=== PATIENT | female | born 1935 | race Two or more races ===

== ENCOUNTER 2017-07-29 10:50 | Outpatient (CLI) | payer OTHER ==
[~2017-07-29 10:50] MED LIST: ALDACTONE25 MG; COZAAR25 MG; LASIX20 MG; LIPITOR20 MG; NORVASC5 MG; XANAX0.25 MG PO; XARELTO20 MG
== END 2017-07-29 11:02 | disposition home or self-care (01) ==
LOC: LAB 10:50
DX: N39.0 Urinary tract infection, site not specified (principal); R82.79 Other abnormal findings on microbiological examination of urine

== ENCOUNTER 2017-07-29 10:54 | Outpatient (CLI) | payer OTHER | END 2017-07-29 11:02 | disposition home or self-care (01) | LOC: RAD 10:54 | DX: J44.1 Chronic obstructive pulmonary disease with (acute) exacerbation (principal) ==

== ENCOUNTER 2017-11-03 10:26 | Emergency (ER) | payer OTHER ==
[~2017-11-03] VITALS: Ht 162.6 cm; Wt 99.8 kg
[2017-11-03] MEDS ORDERED: COREG CR10 MG (10:59)
[2017-11-03] MEDS ORDERED: DIOVAN40 MG (11:00)
[2017-11-03] MEDS ORDERED: XARELTO15 MG (11:01)
[2017-11-03] MEDS ORDERED: PREDNISONE10 MG (11:01)
[2017-11-03] MEDS ORDERED: LASIX40 MG (11:01)
[2017-11-03] MEDS ORDERED: SYMBICORT 16010.2 GM (11:02)
[2017-11-03] MEDS ORDERED: BUDESONIDE0.5 MG/2 M (11:02)
[2017-11-03] MEDS ORDERED: XOPENEX0.63 MG/3 (11:02)
== END 2017-11-03 14:45 | disposition home or self-care (01) ==
LOC: ER 10:26
DX: R00.2 Palpitations (principal)

== ENCOUNTER 2017-11-29 12:53 | Inpatient (IN) | payer OTHER ==
[~2017-11-29] VITALS: Ht 162.6 cm; Wt 97.1 kg
[~2017-11-29 12:53] MED LIST changes: +BUDESONIDE0.5 MG/2 M; +COREG CR10 MG; +DIOVAN40 MG; +LASIX40 MG; +PREDNISONE10 MG; +SYMBICORT 16010.2 GM; +XARELTO15 MG; +XOPENEX0.63 MG/3
== END 2017-12-07 14:37 | disposition home or self-care (01) | DRG 308 ==
LOC: ER 12:53 → ICU-2 20:27 → SURH 20:27 → MEDI 11-30 13:17 → SURH 12-07 14:37
PROC: 3E0F7GC Introduction of Other Therapeutic Substance into Respiratory Tract, Via Natural or Artificial Opening (ICD-10-PCS; principal; 2017-11-30)
PROC: 4A033R1 Measurement of Arterial Saturation, Peripheral, Percutaneous Approach (ICD-10-PCS; 2017-11-30)
PROC: B246ZZZ Ultrasonography of Right and Left Heart (ICD-10-PCS; 2017-11-30)
PROC: 4A12X4Z Monitoring of Cardiac Electrical Activity, External Approach (ICD-10-PCS; 2017-11-30)
PROC: BW41ZZZ Ultrasonography of Abdomen and Pelvis (ICD-10-PCS; 2017-12-01)
PROC: BW4GZZZ Ultrasonography of Pelvic Region (ICD-10-PCS; 2017-12-06)
DX: I48.0 Paroxysmal atrial fibrillation (principal); I50.33 Acute on chronic diastolic (congestive) heart failure; I20.0 Unstable angina; J45.31 Mild persistent asthma with (acute) exacerbation; J44.1 Chronic obstructive pulmonary disease with (acute) exacerbation; N39.0 Urinary tract infection, site not specified; N17.8 Other acute kidney failure; D69.59 Other secondary thrombocytopenia; B96.89 Other specified bacterial agents as the cause of diseases classified elsewhere; M81.0 Age-related osteoporosis without current pathological fracture; I11.0 Hypertensive heart disease with heart failure; Z86.73 Personal history of transient ischemic attack (TIA), and cerebral infarction without residual deficits; M54.31 Sciatica, right side

== ENCOUNTER 2018-07-17 12:08 | Emergency (ER) | payer OTHER ==
[~2018-07-17] VITALS: Ht 162.6 cm; Wt 95.3 kg
== END 2018-07-17 21:59 | disposition home or self-care (01) ==
LOC: ER 12:08
DX: J09.X2 Influenza due to identified novel influenza A virus with other respiratory manifestations (principal); J45.901 Unspecified asthma with (acute) exacerbation

== ENCOUNTER 2019-07-11 10:04 | Emergency (ER) | payer OTHER ==
[~2019-07-11] VITALS: Ht 162.6 cm; Wt 127.0 kg
[2019-07-11] MEDS ORDERED: ALDACTONE25 MG (10:56)
[2019-07-11] MEDS ORDERED: CARVEDILOL6.25 MG (10:57)
[2019-07-11] MEDS ORDERED: SINGULAIR10 MG (10:57)
== END 2019-07-11 11:27 | disposition home or self-care (01) ==
LOC: ER 10:04
DX: M17.12 Unilateral primary osteoarthritis, left knee (principal); M19.072 Primary osteoarthritis, left ankle and foot

== ENCOUNTER → 2020-12-11 | Emergency (ER) | payer OTHER ==
[~2020-12-11] VITALS: Ht 162.6 cm; Wt 95.3 kg
[~2020-12-11] MED LIST changes: +CARVEDILOL6.25 MG; +SINGULAIR10 MG
== END | disposition left against medical advice (07) ==
LOC: ER 09:54
DX: S90.31XA Contusion of right foot, initial encounter (principal); X58.XXXA Exposure to other specified factors, initial encounter; Y93.89 Activity, other specified; Y92.89 Other specified places as the place of occurrence of the external cause; Y99.8 Other external cause status

== ENCOUNTER 2021-03-20 09:26 | Emergency (ER) | payer OTHER ==
[~2021-03-20] VITALS: Ht 162.6 cm; Wt 101.6 kg
[2021-03-20] MEDS ORDERED: UTIX PO (16:27)
[2021-03-20] MEDS ORDERED: LEVOFLOXACIN500 MG PO (16:27)
== END 2021-03-20 17:51 | disposition home or self-care (01) ==
LOC: ER 09:26
DX: K57.90 Diverticulosis of intestine, part unspecified, without perforation or abscess without bleeding (principal); N39.0 Urinary tract infection, site not specified; R10.32 Left lower quadrant pain

== ENCOUNTER 2021-12-02 05:09 | Inpatient (IN) | payer OTHER ==
[~2021-12-02] VITALS: Ht 152.4 cm; Wt 98.4 kg
[~2021-12-02 05:09] MED LIST changes: +LEVOFLOXACIN500 MG PO; +UTIX PO
--- NOTE | 2021-12-02 05:47 | NUR ---
PATIENT IS RECIEVED ALERT ORIENTED X3. PATIENT IS SAYING THAT SHE HAS CHEST PAIN AND DIFFICULTY BREATHING SINCE YESTERDAY.
--- NOTE | 2021-12-02 07:00 | NUR ---
SE RECIBE PACIENTE FEMENINA ALERTA Y ORIENTADA X3, EN CAMA #2 CON BARRANDAS ELEVADAS. CONECTADA A MONITOR CARDIACO, OXIMETRIA DE PULSO Y CANULA NASAL A 2 LITROS. AREA DE VENOPUNCION EN BRAZO DERECHO CANALIZADA CON ANGIO #18 EN AMBOS CON S/L Y TRIDIL 50MG/ 250ML D/W 5% BAJANDO 2ML/HR PATENTE TATE DE EDEMA Y ENROJECIMIENTO. TIENE ORR #16 CON ORINA COLOR AMARILLA. PENDIENTE A CONSULTA. SE OBSERVA POR CAMBIOS.
--- NOTE | 2021-12-02 07:04 | NUR ---
SE RECIBE PTE FEMENINA DE 86 YRS ALERTA CONCIENTE Y CON DIFICULTAD AL RESPIRAR. SE ACOMODA EN CAMA EN LA UNIDAD DE ICU-2 SE CONCETA A MONITOR CARDIACO Y OXIMENTRIA SE LE INSERTA FOLIE CATHETE Y SE LE MARY BETH MUESTRAS JEROME PROTOCOLO DE LA UNIDAD. PTE ES EVALUADA POR EL ,RENTA QUIE ORDENA TRATAMEINTO LA CUAL S EJECUTA / SE LE NOTIFICA A MS,LEE DE TERAPIA R ESPIRATORIA PARA LOS ABG'S Y COMINEZO DE TRATMAINETO DE XOPENEX. SE MANTIENE BAJO OBSERVACION.SE LE ADMINISTRA LASIX 40MG IV Y SOLUMENDROL 125 MG IV. SE OBSERVA POR CAMBIOS.
[2021-12-08] MEDS ORDERED: GABAPENTIN100 M2 (16:12)
== END 2021-12-16 16:40 | disposition home or self-care (01) | DRG 280 ==
LOC: ER 05:09 → SURH 13:11 → MEDJ 13:11 → SEC-K 15:42 → SURH 12-03 17:49 → ICU 12-10 14:54 → MEDJ 12-14 11:17
PROVIDERS: ADMIT Internal Medicine; ATTEND Internal Medicine
PROC: B24BZZZ Ultrasonography of Heart with Aorta (ICD-10-PCS; principal; 2021-12-02)
PROC: 4A12X4Z Monitoring of Cardiac Electrical Activity, External Approach (ICD-10-PCS; 2021-12-03)
PROC: BW24ZZZ Computerized Tomography (CT Scan) of Chest and Abdomen (ICD-10-PCS; 2021-12-09)
PROC: 02HV33Z Insertion of Infusion Device into Superior Vena Cava, Percutaneous Approach (ICD-10-PCS; 2021-12-11)
DX: I11.0 Hypertensive heart disease with heart failure (principal); I50.33 Acute on chronic diastolic (congestive) heart failure; I21.4 Non-ST elevation (NSTEMI) myocardial infarction; N39.0 Urinary tract infection, site not specified; J98.11 Atelectasis; R06.02 Shortness of breath; I48.91 Unspecified atrial fibrillation; R09.02 Hypoxemia; E66.01 Morbid (severe) obesity due to excess calories; J44.9 Chronic obstructive pulmonary disease, unspecified; I44.7 Left bundle-branch block, unspecified; B96.0 Mycoplasma pneumoniae [M. pneumoniae] as the cause of diseases classified elsewhere; I25.10 Atherosclerotic heart disease of native coronary artery without angina pectoris; Z20.822 Contact with and (suspected) exposure to COVID-19

== ENCOUNTER 2024-04-13 08:08 | Outpatient (CLI) | payer OTHER ==
[~2024-04-13 08:08] MED LIST changes: +GABAPENTIN100 M2
[2024-04-13 08:53] LABS: HEMATOCRIT 41.3 % (36.0-45.00); HEMOGLOBIN 13.7 g/dL (12.0-15.00); MEAN CELL VOLUME 92.1 fL (80.00-100.00); MEAN CORPUSCULAR HEMOGLOBIN 30.6 pg (27.00-32.0); MEAN CORPUSCULAR HGB CONC 33.2 g/dl (32.0-36.0); RED BLOOD COUNT 4.49 M/uL (4.00-6.00); RED CELL DISTRIBUTION WIDTH 14.1 % (11.5-14.5)
[2024-04-13 08:56] LABS: PLATELET COUNT 115 K/uL (150-450)
== END 2024-04-13 08:09 | disposition home or self-care (01) ==
LOC: LAB 08:08
PROVIDERS: ATTEND Internal Medicine
DX: D69.6 Thrombocytopenia, unspecified (principal)

== ENCOUNTER 2024-06-08 22:36 | Emergency (ER) | payer OTHER ==
[~2024-06-08] VITALS: Ht 162.6 cm; Wt 95.3 kg
[2024-06-09] MEDS ORDERED: OxyCODONE HCL/APAP UD (PERCOCET) PO STA (02:13)
[2024-06-09 02:44] LABS: HEMATOCRIT 37.2 % (36.0-45.00); HEMOGLOBIN 12.8 g/dL (12.0-15.00); MEAN CELL VOLUME 89.7 fL (80.00-100.00); MEAN CORPUSCULAR HEMOGLOBIN 30.8 pg (27.00-32.0); MEAN CORPUSCULAR HGB CONC 34.3 g/dl (32.0-36.0); RED BLOOD COUNT 4.15 M/uL (4.00-6.00); RED CELL DISTRIBUTION WIDTH 13.8 % (11.5-14.5)
[2024-06-09 02:47] LABS: PLATELET COUNT 146 K/uL (150-450)
[2024-06-09 02:56] LABS: CALCIUM 8.9 mg/dL (8.5-10.1); CREATININE SERUM 1.03 mg/dL (0.55-1.02); GFR 50.69; INR 1.37; PARTIAL THROMBOPLASTIN TIME 37.3 SECONDS (22.0-34.0); POTASSIUM 4.25 mEq/L (3.5-5.1); PROTHROMBIN TIME 14.6 SECONDS (9.0-11.5)
== END 2024-06-09 06:52 | disposition home or self-care (01) ==
LOC: ER 22:36
DX: S80.02XA Contusion of left knee, initial encounter (principal); W19.XXXA Unspecified fall, initial encounter; Y93.89 Activity, other specified; Y92.89 Other specified places as the place of occurrence of the external cause; Y99.8 Other external cause status; I10 Essential (primary) hypertension; E11.9 Type 2 diabetes mellitus without complications; Z88.6 Allergy status to analgesic agent; Z91.018 Allergy to other foods

== ENCOUNTER 2024-06-12 10:20 | Inpatient (IN) | payer OTHER ==
[~2024-06-12] VITALS: Ht 157.5 cm; Wt 86.2 kg
--- NOTE | 2024-06-12 10:33 | NUR ---
PTE ALERTA Y ORIENTADA X3 LLEGA A MACEY POR AMBULANCIA DEBIDO A QUE LA MISMA SE MAREO Y SE CALLO EN EL HOGAR LASTIMANDOSE RANDLE REDILLA IZQUIERDA. SE MIDEN S/V Y SE REALIZA EKG EL CUAL ES EVALUADO POR EL DR CUNHA.
[2024-06-12] MEDS ORDERED: VASOTEC2.5 MG PO (10:36)
[2024-06-12] MEDS ORDERED: TOPROL XL25 M1 PO (10:36)
[2024-06-12] MEDS ORDERED: TRAMADOL HCL 50 MG TABLET PO ONE (12:45)
--- NOTE | 2024-06-12 13:08 | NUR ---
PACIENTE ALERTA Y ORIENTADA X3 EN COMPANIA DE FAMILIAR. SE EDUCA A FAMILIAR Y PACIENTE SOBRE PROCESO DE MARY BETH DE MUESTRAS, REFIERENEN ENTENDER. SE EJECUTAN ORDENES BAJO MEDIDAS ASEPTICAS.
[2024-06-12 13:44] LABS: HEMATOCRIT 34.3 % (36.0-45.00); HEMOGLOBIN 11.4 g/dL (12.0-15.00); MEAN CELL VOLUME 91.4 fL (80.00-100.00); MEAN CORPUSCULAR HEMOGLOBIN 30.3 pg (27.00-32.0); MEAN CORPUSCULAR HGB CONC 33.1 g/dl (32.0-36.0); PLATELET COUNT 164 K/uL (150-450); RED BLOOD COUNT 3.75 M/uL (4.00-6.00); RED CELL DISTRIBUTION WIDTH 14.2 % (11.5-14.5)
[2024-06-12 14:50] LABS: ALBUMIN 3.2 gm/dL (3.4-5.0); BILIRUBIN TOTAL 1.29 mg/dL (0.3-1.2); CALCIUM 8.7 mg/dL (8.5-10.1); CREATININE SERUM 1.33 mg/dL (0.55-1.02); GFR 37.74; GLOBULINA 3.6 G/DL (2.4-3.5); POTASSIUM 4.64 mEq/L (3.5-5.1); TOTAL PROTEIN 6.8 gm/dL (6.4-8.2)
[2024-06-12] MEDS ORDERED: CEFTRIAXONE SODIUM 1,000 MG VIAL IV ONE (15:30)
[2024-06-12] MEDS ORDERED: CEFTRIAXONE SODIUM 1,000 MG VIAL ONE (15:30)
[2024-06-12] MEDS ORDERED: NITROGLYCERIN IN 5 % DEXTROSE 250 ML IV SCH (16:05)
[2024-06-12] MEDS ORDERED: CEFTRIAXONE SODIUM 2,000 MG in 0.9 % SODIUM CHLORIDE 100 ML IV SCH (16:07)
[2024-06-12] MEDS ORDERED: ENOXAPARIN SODIUM 80 MG/0.8 ML SYRINGE SUBCUTANEO SCH (16:10)
[2024-06-12] MEDS ORDERED: 0.9 % SODIUM CHLORIDE 1,000 ML IV SCH (16:15)
[2024-06-12 16:24] LABS: PH,URINE 5.5 (5.0-8.0); URINE APPEARANCE Clear; URINE BILIRRUBIN Negative (NEGATIVE); URINE BLOOD Large; URINE COLOR Yellow; URINE KETONE Negative (NEGATIVE); URINE LEUKOCYTE Trace; URINE NITRATE Negative; URINE PROTEIN Trace (NEGATIVE); URINE UROBILINOGEN 0.2 E.U./dl
[2024-06-12 16:27] LABS: URINE BACTERIA 349.9 uL (0.0-1933); URINE CAST 1.76 uL (0.0-1.40); URINE EPITHELIAL CELLS 44.1 uL (0.0-38.8); URINE RBC 1621.8 uL (0.0-20.8); URINE WBC 27.5 uL (0.0-23.2)
[2024-06-12] MEDS ORDERED: INSULIN LISPRO 1,000 UNIT/10 ML UNITS SUBCUTANEO PRN (16:30)
[2024-06-12] MEDS ORDERED: DEXTROSE 50 % IN WATER 0.5 G/ML DISP.SYRIN IV PRN (16:30)
[2024-06-12 17:19] LABS: URINE GLUCOSE 100 MG/DL (NEGATIVE)
[2024-06-12] MEDS ORDERED: ENOXAPARIN SODIUM 80 MG/0.8 ML SYRINGE SUBCUTANEO ONE (17:39)
[2024-06-12 18:05] LABS: INR 1.4; PARTIAL THROMBOPLASTIN TIME 31.5 SECONDS (22.0-34.0); PROTHROMBIN TIME 14.9 SECONDS (9.0-11.5)
[2024-06-12 18:09] LABS: CHOL HDL RATIO 2.3 (0-5.0)
[2024-06-12 18:45] VITALS: BP 149/73
[2024-06-12 19:47] VITALS: O2SAT 96
[2024-06-12 22:42] VITALS: BP 90/38
[2024-06-12 22:42] LABS: ABG PH 7.473 (7.35-7.45); ABG PO2 91.5 mmHg (80-100); ABG pCO2 29.3 mmHg (35-45); BASE EXCESS -1.3 mmol/l; SaO2 97.6 %; Tco2 21.9 mmol/l
[2024-06-12 23:57] LABS: allen test SATISFACTORY; o2 21 %; puncture site BRADIAL RIGHT
[2024-06-13] VITALS (9 sets, daily range): BP systolic 120–149; BP diastolic 42–53; O2SAT 88–99
[2024-06-13] MEDS ORDERED: ACETAMINOPHEN 500 MG GEL..CAP PO PRN (00:45)
[2024-06-14] VITALS (7 sets, daily range): BP systolic 113–147; BP diastolic 45–64; O2SAT 97–100
[2024-06-14] MEDS ORDERED: FUROsemide 20 MG/2 ML VIAL IV SCH (09:00)
[2024-06-14] MEDS ORDERED: GABAPENTIN 100 MG CAPSULE PO SCH (18:38)
[2024-06-14] MEDS ORDERED: ALPRAzolam 0.5 MG TABLET PO SCH (21:00)
[2024-06-15 00:46] VITALS: O2SAT 88
[2024-06-15 01:52] VITALS: BP 128/60; O2SAT 97
[2024-06-15 04:00] VITALS: O2SAT 97
[2024-06-15 08:36] VITALS: BP 135/49
[2024-06-15 08:47] VITALS: O2SAT 96
== END 2024-06-15 14:05 | disposition home or self-care (01) | DRG 291 ==
LOC: ER 10:20 → MEDI 18:38
PROVIDERS: General Practice; ADMIT Internal Medicine; ATTEND Internal Medicine
PROC: 4A12X4Z Monitoring of Cardiac Electrical Activity, External Approach (ICD-10-PCS; principal; 2024-06-12)
PROC: BW28ZZZ Computerized Tomography (CT Scan) of Head (ICD-10-PCS; 2024-06-12)
PROC: BR20ZZZ Computerized Tomography (CT Scan) of Cervical Spine (ICD-10-PCS; 2024-06-12)
PROC: BW21ZZZ Computerized Tomography (CT Scan) of Abdomen and Pelvis (ICD-10-PCS; 2024-06-12)
PROC: B24BZZZ Ultrasonography of Heart with Aorta (ICD-10-PCS; 2024-06-12)
PROC: BW38ZZZ Magnetic Resonance Imaging (MRI) of Head (ICD-10-PCS; 2024-06-13)
DX: I11.0 Hypertensive heart disease with heart failure (principal); I50.23 Acute on chronic systolic (congestive) heart failure; I48.20 Chronic atrial fibrillation, unspecified; S00.93XA Contusion of unspecified part of head, initial encounter; S80.02XA Contusion of left knee, initial encounter; R55 Syncope and collapse; W13.3XXA Fall through floor, initial encounter; Y93.9 Activity, unspecified; Y92.9 Unspecified place or not applicable; I48.0 Paroxysmal atrial fibrillation; E66.9 Obesity, unspecified
CPT/HCPCS: 70544

== ENCOUNTER 2024-06-25 06:57 | Inpatient (IN) | payer OTHER ==
[~2024-06-25] VITALS: Ht 152.4 cm; Wt 90.7 kg
[~2024-06-25 06:57] MED LIST changes: +TOPROL XL25 M1 PO; +VASOTEC2.5 MG PO
[2024-06-25] MEDS ORDERED: PIPERACILLIN/TAZOBACTAM SODIUM 3.375 GM VIAL IV SCH (08:24)
[2024-06-25] MEDS ORDERED: METHYLPREDNISOLONE SOD SUCC 125 MG VIAL IV ONE (08:30)
[2024-06-25] MEDS ORDERED: PANTOPRAZOLE SODIUM 40 MG/VIAL VIAL IV ONE (08:30)
[2024-06-25] MEDS ORDERED: IPRATROPIUM BROMIDE 0.5 MG/2.5 ML AMPUL.NEB IH ONE ×2 (08:30→08:58)
[2024-06-25] MEDS ORDERED: MEPERIDINE HCL/PF 25 MG/ML VIAL IM ONE (08:30)
[2024-06-25] MEDS ORDERED: LEVALBUTEROL HCL 1.25 MG/3 ML SOLUTION IH ONE ×2 (08:30→08:58)
[2024-06-25] MEDS ORDERED: METHYLPREDNISOLONE SOD SUCC 125 MG VIAL ONE (08:40)
[2024-06-25] MEDS ORDERED: PIPERACILLIN/TAZOBACTAM SODIUM 3.375 GM VIAL IV ONE (08:41)
[2024-06-25 09:35] LABS: MEAN CELL VOLUME 90.6 fL (80.00-100.00); PLATELET COUNT 195 K/uL (150-450); RED BLOOD COUNT 2.44 M/uL (4.00-6.00); RED CELL DISTRIBUTION WIDTH 16.4 % (11.5-14.5)
[2024-06-25 09:38] LABS: HEMATOCRIT 22.1 % (36.0-45.00)
[2024-06-25 09:39] LABS: HEMOGLOBIN 7.1 g/dL (12.0-15.00)
[2024-06-25 09:40] LABS: ERYTHROCYTE SEDIMENTATION RATE 82 mm/hr
[2024-06-25 09:46] LABS: ALBUMIN 2.6 gm/dL (3.4-5.0); BILIRUBIN TOTAL 1.63 mg/dL (0.3-1.2); CALCIUM 8.5 mg/dL (8.5-10.1); CREATININE SERUM 1.36 mg/dL (0.55-1.02); GFR 36.78; GLOBULINA 3.1 G/DL (2.4-3.5); POTASSIUM 5.4 mEq/L (3.5-5.1); TOTAL PROTEIN 5.7 gm/dL (6.4-8.2)
[2024-06-25 09:51] LABS: C-REACTIVE PROTEIN 2.44 MG/DL (0.00-0.29)
[2024-06-25 09:58] LABS: INR 1.39; PARTIAL THROMBOPLASTIN TIME 34.7 SECONDS (22.0-34.0); PROTHROMBIN TIME 14.8 SECONDS (9.0-11.5)
[2024-06-25 11:04] LABS: D DIMER 5.39 MG/L
[2024-06-25 11:20] LABS: URINE APPEARANCE Cloudy; URINE BILIRRUBIN Negative (NEGATIVE); URINE BLOOD Negative; URINE COLOR Yellow; URINE GLUCOSE Negative (NEGATIVE); URINE KETONE Negative (NEGATIVE); URINE LEUKOCYTE Large; URINE NITRATE Negative; URINE PROTEIN Negative (NEGATIVE)
[2024-06-25 11:24] LABS: URINE BACTERIA 1549.5 uL (0.0-1933); URINE EPITHELIAL CELLS 9.9 uL (0.0-38.8); URINE RBC 4.4 uL (0.0-20.8); URINE WBC 662.1 uL (0.0-23.2)
[2024-06-25 11:59] LABS: ABG PO2 104.7 mmHg (80-100); ABG pCO2 32.8 mmHg (35-45); BASE EXCESS 0.3 mmol/l; BICARBONATE 23.2 mmol/l (23-25); SaO2 98.4 %; Tco2 24.2 mmol/l
[2024-06-25 12:00] LABS: allen test SATISFACTORY; o2 21 %; puncture site RADIAL RIGHT
[2024-06-25] MEDS ORDERED: SODIUM CHLORIDE 0.45 % 1,000 ML IV SCH (16:45)
[2024-06-25] MEDS ORDERED: LEVALBUTEROL HCL 0.63 MG/3 ML SOLUTION IH SCH (17:00)
[2024-06-25] MEDS ORDERED: IPRATROPIUM BROMIDE 0.5 MG/2.5 ML AMPUL.NEB IH SCH (17:00)
[2024-06-25] MEDS ORDERED: AZITHROMYCIN 500 MG VIAL IV SCH (17:04)
[2024-06-25] MEDS ORDERED: CEFTRIAXONE SODIUM 1,000 MG in 0.9 % SODIUM CHLORIDE 100 ML IV SCH (17:05)
[2024-06-25] MEDS ORDERED: FAMOTIDINE/PF 20 MG/2 ML VIAL IV SCH (17:07)
[2024-06-25] MEDS ORDERED: PANTOPRAZOLE SODIUM 40 MG/VIAL VIAL IV SCH (17:07)
[2024-06-25] MEDS ORDERED: ACETAMINOPHEN 325 MG TABLET PO PRN (17:15)
[2024-06-25] MEDS ORDERED: FUROsemide 20 MG/2 ML VIAL IV SCH ×2 (17:49→23:45)
[2024-06-25 20:44] VITALS: BP 149/47; O2SAT 100
[2024-06-25 22:30] VITALS: BP 122/56; O2SAT 100
[2024-06-26] VITALS (9 sets, daily range): BP systolic 118–152; BP diastolic 46–69; O2SAT 90–100
[2024-06-26] MEDS ORDERED: AZITHROMYCIN 500 MG VIAL IV ONE (08:47)
[2024-06-26] MEDS ORDERED: ENOXAPARIN SODIUM 30 MG/0.3 ML SYRINGE SUBCUTANEO SCH (09:00)
[2024-06-26] MEDS ORDERED: AMPICILLIN SODIUM/SULBACTAM NA 3,000 MG in 0.9 % SODIUM CHLORIDE 100 ML IV SCH (17:00)
[2024-06-27] VITALS (10 sets, daily range): BP systolic 118–147; BP diastolic 58–73; O2SAT 90–100
[2024-06-27] MEDS ORDERED: FAMOTIDINE/PF 20 MG/2 ML VIAL IV SCH (09:00)
[2024-06-27 13:43] LABS: HEMATOCRIT 34.7 % (36.0-45.00); MEAN CELL VOLUME 89.3 fL (80.00-100.00); MEAN CORPUSCULAR HGB CONC 31.6 g/dl (32.0-36.0); PLATELET COUNT 154 K/uL (150-450); RED BLOOD COUNT 3.88 M/uL (4.00-6.00)
[2024-06-27 14:13] LABS: ALBUMIN 2.8 gm/dL (3.4-5.0); BILIRUBIN TOTAL 1.84 mg/dL (0.3-1.2); CALCIUM 8.6 mg/dL (8.5-10.1); CREATININE SERUM 1.52 mg/dL (0.55-1.02); GFR 32.35; GLOBULINA 3.6 G/DL (2.4-3.5); MAGNESIUM 1.6 mg/dL (1.8-2.4); PHOSPHOROUS 3.6 mg/dL (2.5-4.9); POTASSIUM 3.99 mEq/L (3.5-5.1); TOTAL PROTEIN 6.4 gm/dL (6.4-8.2)
[2024-06-27 14:18] LABS: C-REACTIVE PROTEIN 2.08 MG/DL (0.00-0.29)
[2024-06-27 14:49] LABS: HEMOGLOBIN 10.9 g/dL (12.0-15.00)
[2024-06-27] MEDS ORDERED: levoFLOXacin IN DEXTROSE 5 % 150 ML IV SCH (17:00)
[2024-06-27 17:26] LABS: CHOL HDL RATIO 2.9 (0-5.0)
[2024-06-27] MEDS ORDERED: ALPRAzolam 0.5 MG TABLET PO SCH (21:00)
[2024-06-28] VITALS (7 sets, daily range): BP systolic 118–147; BP diastolic 57–83; O2SAT 97–99
[2024-06-28 07:15] LABS: ALBUMIN 2.4 gm/dL (3.4-5.0); CALCIUM 7.8 mg/dL (8.5-10.1); CREATININE SERUM 1.18 mg/dL (0.55-1.02); GFR 43.33; PHOSPHOROUS 2.7 mg/dL (2.5-4.9); POTASSIUM 3.77 mEq/L (3.5-5.1)
[2024-06-28] MEDS ORDERED: AMINO ACIDS/PROTEIN HYDROLYS 30 ML BLIST.PACK PO SCH (09:00)
[2024-06-28 14:31] LABS: HEMATOCRIT 31.8 % (36.0-45.00); HEMOGLOBIN 10.1 g/dL (12.0-15.00); MEAN CELL VOLUME 89.2 fL (80.00-100.00); MEAN CORPUSCULAR HEMOGLOBIN 28.4 pg (27.00-32.0); MEAN CORPUSCULAR HGB CONC 31.8 g/dl (32.0-36.0); RED BLOOD COUNT 3.56 M/uL (4.00-6.00); RED CELL DISTRIBUTION WIDTH 16.5 % (11.5-14.5)
[2024-06-28 15:31] LABS: PLATELET COUNT 121 K/uL (150-450)
[2024-06-28] MEDS ORDERED: BUDESONIDE 0.5 MG/2 ML AMPUL.NEB IH SCH (17:00)
[2024-06-29] VITALS (8 sets, daily range): BP systolic 131–140; BP diastolic 61–80; O2SAT 94–100
[2024-06-29] MEDS ORDERED: FUROsemide 20 MG/2 ML VIAL IV SCH (09:00)
[2024-06-29] MEDS ORDERED: LACTOBACILLUS ACIDOPHILUS 1 CAP CAP PO SCH (17:00)
[2024-06-29 17:34] LABS: PH,URINE 5.5 (5.0-8.0); URINE APPEARANCE Cloudy; URINE BILIRRUBIN Negative (NEGATIVE); URINE BLOOD Negative; URINE COLOR Dark Yellow; URINE GLUCOSE Negative (NEGATIVE); URINE KETONE Negative (NEGATIVE); URINE LEUKOCYTE Large; URINE NITRATE Negative; URINE PROTEIN 30 (NEGATIVE)
[2024-06-29 17:38] LABS: URINE BACTERIA 111.3 uL (0.0-1933); URINE EPITHELIAL CELLS 45.1 uL (0.0-38.8); URINE RBC 151.4 uL (0.0-20.8); URINE WBC 1239.8 uL (0.0-23.2)
[2024-06-29 17:54] LABS: URINE CAST 0.73 uL (0.0-1.40); URINE YEAST FEW /hpf
[2024-06-29] MEDS ORDERED: LOPERAMIDE HCL 2 MG CAPSULE PO NR (18:30)
[2024-06-29 19:11] LABS: ob POSITIVE (NEGATIVE)
[2024-06-29] MEDS ORDERED: FAMOtidine 20 MG TABLET PO SCH (21:00)
[2024-06-30] VITALS (8 sets, daily range): BP systolic 103–146; BP diastolic 50–62; O2SAT 95–100
[2024-06-30 06:00] LABS: ALBUMIN 2.1 gm/dL (3.4-5.0); CALCIUM 7.9 mg/dL (8.5-10.1); CREATININE SERUM 0.82 mg/dL (0.55-1.02); GFR 65.94; POTASSIUM 3.66 mEq/L (3.5-5.1)
[2024-06-30] MEDS ORDERED: PANTOPRAZOLE SODIUM 40 MG TABLET.DR PO SCH (09:00)
[2024-06-30] MEDS ORDERED: POTASSIUM PHOS,M-BASIC-D-BASIC 15 MM in 0.9 % SODIUM CHLORIDE 250 ML IV ONE (10:00)
[2024-06-30] MEDS ORDERED: FAMOtidine 20 MG TABLET PO SCH (21:00)
[2024-06-30] MEDS ORDERED: LOPERAMIDE HCL 2 MG CAPSULE PO SCH (21:07)
[2024-07-01] VITALS (9 sets, daily range): BP systolic 131–149; BP diastolic 57–76; O2SAT 94–100
[2024-07-01 07:52] LABS: CALCIUM 7.8 mg/dL (8.5-10.1); CREATININE SERUM 0.81 mg/dL (0.55-1.02); GFR 66.73; MAGNESIUM 1.7 mg/dL (1.8-2.4); POTASSIUM 3.57 mEq/L (3.5-5.1)
[2024-07-01 07:58] LABS: HEMOGLOBIN 9.3 g/dL (12.0-15.00); MEAN CELL VOLUME 89.8 fL (80.00-100.00); MEAN CORPUSCULAR HEMOGLOBIN 29.8 pg (27.00-32.0); MEAN CORPUSCULAR HGB CONC 33.2 g/dl (32.0-36.0); RED BLOOD COUNT 3.11 M/uL (4.00-6.00); RED CELL DISTRIBUTION WIDTH 17.1 % (11.5-14.5)
[2024-07-01] MEDS ORDERED: AMPICILLIN SODIUM/SULBACTAM NA 3,000 MG VIAL ONE (08:14)
[2024-07-01 08:20] LABS: PHOSPHOROUS 1.9 mg/dL (2.5-4.9)
[2024-07-01 08:34] LABS: PLATELET COUNT 100 K/uL (150-450)
[2024-07-01] MEDS ORDERED: MAGNESIUM SULFATE 1,000 MG in 0.9 % SODIUM CHLORIDE 50 ML IV ONE (20:30)
[2024-07-01] MEDS ORDERED: POTASSIUM PHOS,M-BASIC-D-BASIC 15 MM in 0.9 % SODIUM CHLORIDE 250 ML IV ONE (20:30)
[2024-07-01] MEDS ORDERED: GUAIFENESIN/DEXTROMETHORPHAN 100MG/10ML BLIST.PACK PO SCH (21:19)
[2024-07-01] MEDS ORDERED: SODIUM CL 0.9% 100 ML IV.SOLN IV ONE (21:49)
[2024-07-02] VITALS (9 sets, daily range): BP systolic 116–120; BP diastolic 50–58; O2SAT 95–99
[2024-07-02 08:11] LABS: MAGNESIUM 1.8 mg/dL (1.8-2.4); PHOSPHOROUS 2.8 mg/dL (2.5-4.9)
[2024-07-02] MEDS ORDERED: AMPICILLIN SODIUM/SULBACTAM NA 3,000 MG VIAL ONE (09:05)
[2024-07-03] VITALS (9 sets, daily range): BP systolic 104–140; BP diastolic 44–61; O2SAT 95–100
[2024-07-03] MEDS ORDERED: BISMUTH SUBSALICYLATE 524 MG/30 ML BLIST.PACK PO SCH (14:03)
[2024-07-04] VITALS (9 sets, daily range): BP systolic 110–155; BP diastolic 48–67; O2SAT 96–100
[2024-07-04 06:58] LABS: ALBUMIN 1.8 gm/dL (3.4-5.0); BILIRUBIN TOTAL 0.99 mg/dL (0.3-1.2); C-REACTIVE PROTEIN 10.7 MG/DL (0.00-0.29); CREATININE SERUM 0.87 mg/dL (0.55-1.02); GFR 61.45; GLOBULINA 3.5 G/DL (2.4-3.5); MAGNESIUM 1.8 mg/dL (1.8-2.4); PHOSPHOROUS 2.3 mg/dL (2.5-4.9); POTASSIUM 3.55 mEq/L (3.5-5.1); TOTAL PROTEIN 5.3 gm/dL (6.4-8.2)
[2024-07-04 07:12] LABS: HEMATOCRIT 27.2 % (36.0-45.00); MEAN CELL VOLUME 89.1 fL (80.00-100.00); MEAN CORPUSCULAR HEMOGLOBIN 29.4 pg (27.00-32.0); RED BLOOD COUNT 3.05 M/uL (4.00-6.00); RED CELL DISTRIBUTION WIDTH 16.7 % (11.5-14.5)
[2024-07-04 08:26] LABS: PLATELET COUNT 91 K/uL (150-450)
[2024-07-04] MEDS ORDERED: ACETAMINOPHEN 325 MG TABLET PO SCH (12:00)
[2024-07-05] VITALS (10 sets, daily range): BP systolic 113–120; BP diastolic 47–68; O2SAT 96–100
[2024-07-05] MEDS ORDERED: FUROsemide 20 MG TABLET PO SCH (20:53)
[2024-07-05] MEDS ORDERED: CEFEPIME HCL 2,000 MG VIAL IV SCH (21:00)
[2024-07-05] MEDS ORDERED: ALPRAzolam 0.5 MG TABLET PO STA (22:00)
[2024-07-06] VITALS (9 sets, daily range): BP systolic 113–142; BP diastolic 50–70; O2SAT 98–100
[2024-07-06 06:55] LABS: HEMATOCRIT 25.9 % (36.0-45.00); MEAN CELL VOLUME 89.1 fL (80.00-100.00); MEAN CORPUSCULAR HGB CONC 32.7 g/dl (32.0-36.0); RED BLOOD COUNT 2.91 M/uL (4.00-6.00); RED CELL DISTRIBUTION WIDTH 16.5 % (11.5-14.5)
[2024-07-06 06:58] LABS: ALBUMIN 1.6 gm/dL (3.4-5.0); BILIRUBIN TOTAL 0.62 mg/dL (0.3-1.2); CALCIUM 7.2 mg/dL (8.5-10.1); CREATININE SERUM 0.81 mg/dL (0.55-1.02); GFR 66.73; GLOBULINA 3.2 G/DL (2.4-3.5); MAGNESIUM 1.7 mg/dL (1.8-2.4); PHOSPHOROUS 2.2 mg/dL (2.5-4.9); POTASSIUM 3.55 mEq/L (3.5-5.1); TOTAL PROTEIN 4.8 gm/dL (6.4-8.2)
[2024-07-06 06:59] LABS: C-REACTIVE PROTEIN 9.44 MG/DL (0.00-0.29)
[2024-07-06 07:32] LABS: PLT IN CITRATE 75 K/uL (150-450)
[2024-07-06 07:33] LABS: MEAN CORPUSCULAR HEMOGLOBIN 29.2 pg (27.00-32.0)
[2024-07-06 07:34] LABS: HEMOGLOBIN 8.5 g/dL (12.0-15.00); PLATELET COUNT 81 K/uL (150-450)
[2024-07-06 07:37] LABS: D DIMER 11.98 MG/L
[2024-07-06] MEDS ORDERED: VITAMIN B COMPLEX 1 EACH PO SCH (09:00)
[2024-07-06] MEDS ORDERED: MAGNESIUM CHLORIDE 70 MG TABLET.DR PO SCH (18:26)
[2024-07-06] MEDS ORDERED: POTASSIUM PHOS,M-BASIC-D-BASIC 15 MM in 0.9 % SODIUM CHLORIDE 250 ML IV NR (19:00)
[2024-07-06] MEDS ORDERED: LOPERAMIDE HCL 2 MG CAPSULE PO SCH (20:31)
[2024-07-06] MEDS ORDERED: ALPRAzolam 0.5 MG TABLET PO SCH (21:00)
[2024-07-07] VITALS (9 sets, daily range): BP systolic 115–128; BP diastolic 55–60; O2SAT 95–100
[2024-07-07 09:54] LABS: PLATELET ESTIMATE NORMAL (NORMAL)
[2024-07-08] VITALS (10 sets, daily range): BP systolic 125–148; BP diastolic 65–67; O2SAT 92–100
[2024-07-08 08:04] LABS: ALBUMIN 1.7 gm/dL (3.4-5.0); BILIRUBIN TOTAL 0.68 mg/dL (0.3-1.2); CALCIUM 7.8 mg/dL (8.5-10.1); CREATININE SERUM 0.8 mg/dL (0.55-1.02); GFR 67.69; GLOBULINA 3.7 G/DL (2.4-3.5); MAGNESIUM 1.7 mg/dL (1.8-2.4); PHOSPHOROUS 2.4 mg/dL (2.5-4.9); POTASSIUM 4.31 mEq/L (3.5-5.1); TOTAL PROTEIN 5.4 gm/dL (6.4-8.2)
[2024-07-08] MEDS ORDERED: EPOETIN ALFA-EPBX 10,000 UNIT/ML VIAL (Retacrit) SUBCUTANEO SCH (09:00)
[2024-07-08] MEDS ORDERED: POTASSIUM PHOS,M-BASIC-D-BASIC 15 MM in 0.9 % SODIUM CHLORIDE 250 ML IV NR (15:00)
[2024-07-09] VITALS (9 sets, daily range): BP systolic 114–135; BP diastolic 52–57; O2SAT 95–100
[2024-07-10] VITALS (8 sets, daily range): BP systolic 120–144; BP diastolic 52–69; O2SAT 90–100
[2024-07-10] MEDS ORDERED: FUROsemide 20 MG/2 ML VIAL ONE (07:32)
[2024-07-10] MEDS ORDERED: FUROsemide 20 MG/2 ML VIAL IV ONE (07:45)
[2024-07-10] MEDS ORDERED: FUROsemide 40 MG/4 ML VIAL IV NR (09:00)
[2024-07-10] MEDS ORDERED: ALBUMIN HUMAN 100 ML VIAL IV SCH (12:50)
[2024-07-10] MEDS ORDERED: NYSTATIN 30 GM,SILVER SULFADIAZINE 50 GM,ZINC OXIDE 30 GM TOP SCH (17:00)
[2024-07-11] VITALS (8 sets, daily range): BP systolic 123–143; BP diastolic 63–80; O2SAT 94–100
[2024-07-11] MEDS ORDERED: FUROsemide 20 MG/2 ML VIAL IV SCH (09:00)
[2024-07-11 15:04] LABS: HEMATOCRIT 34.9 % (36.0-45.00); HEMOGLOBIN 11.3 g/dL (12.0-15.00); MEAN CELL VOLUME 88.6 fL (80.00-100.00); MEAN CORPUSCULAR HEMOGLOBIN 28.6 pg (27.00-32.0); MEAN CORPUSCULAR HGB CONC 32.3 g/dl (32.0-36.0); RED BLOOD COUNT 3.94 M/uL (4.00-6.00); RED CELL DISTRIBUTION WIDTH 16.7 % (11.5-14.5)
[2024-07-11 15:17] LABS: PLATELET COUNT 85 K/uL (150-450)
[2024-07-11 15:39] LABS: ALBUMIN 2.3 gm/dL (3.4-5.0); CALCIUM 8.1 mg/dL (8.5-10.1); CREATININE SERUM 0.84 mg/dL (0.55-1.02); GFR 63.99; PHOSPHOROUS 2.4 mg/dL (2.5-4.9); POTASSIUM 4.62 mEq/L (3.5-5.1)
[2024-07-12] VITALS (7 sets, daily range): BP systolic 125–139; BP diastolic 69–75; O2SAT 10–100
[2024-07-12] MEDS ORDERED: ACETAMINOPHEN 325 MG TABLET PO SCH
[2024-07-12] MEDS ORDERED: ACETAMINOPHEN 325 MG TABLET PO ONE (00:42)
[2024-07-13] VITALS (7 sets, daily range): BP systolic 120–156; BP diastolic 61–81; O2SAT 96–100
== END 2024-07-13 21:47 | disposition home or self-care (01) | DRG 264 ==
LOC: ER 06:57 → MEDI 17:36
PROVIDERS: General Practice; Internal Medicine; Internal Medicine Hematology & Oncology; Internal Medicine Infectious Disease; Specialist; Specialist/Technologist, Other Nephrology; ADMIT Internal Medicine; ATTEND Internal Medicine
PROC: BB24ZZZ Computerized Tomography (CT Scan) of Bilateral Lungs (ICD-10-PCS; 2024-06-25)
PROC: BW21ZZZ Computerized Tomography (CT Scan) of Abdomen and Pelvis (ICD-10-PCS; 2024-06-25)
PROC: 4A12X4Z Monitoring of Cardiac Electrical Activity, External Approach (ICD-10-PCS; 2024-06-25)
PROC: 3E0F7GC Introduction of Other Therapeutic Substance into Respiratory Tract, Via Natural or Artificial Opening (ICD-10-PCS; 2024-06-26)
PROC: 30233N1 Transfusion of Nonautologous Red Blood Cells into Peripheral Vein, Percutaneous Approach (ICD-10-PCS; 2024-06-26)
PROC: 02HV33Z Insertion of Infusion Device into Superior Vena Cava, Percutaneous Approach (ICD-10-PCS; 2024-06-27)
PROC: 0J9P0ZZ Drainage of Left Lower Leg Subcutaneous Tissue and Fascia, Open Approach (ICD-10-PCS; 2024-06-27)
PROC: 0JBP0ZZ Excision of Left Lower Leg Subcutaneous Tissue and Fascia, Open Approach (ICD-10-PCS; principal; 2024-06-28)
PROC: 0JBP0ZZ Excision of Left Lower Leg Subcutaneous Tissue and Fascia, Open Approach (ICD-10-PCS; 2024-06-30)
PROC: 0JBM0ZZ Excision of Left Upper Leg Subcutaneous Tissue and Fascia, Open Approach (ICD-10-PCS; 2024-07-12)
DX: I50.23 Acute on chronic systolic (congestive) heart failure (principal); I96 Gangrene, not elsewhere classified; L97.129 Non-pressure chronic ulcer of left thigh with unspecified severity; I13.0 Hypertensive heart and chronic kidney disease with heart failure and stage 1 through stage 4 chronic kidney disease, or unspecified chronic kidney disease; N17.9 Acute kidney failure, unspecified; I48.20 Chronic atrial fibrillation, unspecified; J44.1 Chronic obstructive pulmonary disease with (acute) exacerbation; N39.0 Urinary tract infection, site not specified; I42.8 Other cardiomyopathies; S80.02XS Contusion of left knee, sequela; D64.89 Other specified anemias; J45.998 Other asthma; L89.152 Pressure ulcer of sacral region, stage 2; R55 Syncope and collapse; E88.09 Other disorders of plasma-protein metabolism, not elsewhere classified; R19.7 Diarrhea, unspecified; D69.6 Thrombocytopenia, unspecified; B96.5 Pseudomonas (aeruginosa) (mallei) (pseudomallei) as the cause of diseases classified elsewhere; D63.1 Anemia in chronic kidney disease; N18.30 Chronic kidney disease, stage 3 unspecified; E78.5 Hyperlipidemia, unspecified; E03.9 Hypothyroidism, unspecified; W18.39XS Other fall on same level, sequela; Z79.01 Long term (current) use of anticoagulants; B95.2 Enterococcus as the cause of diseases classified elsewhere; R54 Age-related physical debility